=== PATIENT | female | born 1955 | race Hispanic/Latino ===

== ENCOUNTER 2020-03-06 18:45 | Emergency (ER) | payer BC, OTHER ==
[~2020-03-06] VITALS: Ht 152.4 cm; Wt 79.4 kg
[~2020-03-06 18:45] MED LIST: LANTUS100 UNITS/ SC; LEVEMIR100 UNIT/1; LOSARTAN POTASS25 MG; NOVOLOG MI100 UNITS/ SC; PRAVASTATIN SOD10 MG; SINGULAIR10 MG
[2020-03-06 19:18] LABS: BASOPHILS % 0.4 % (0.0-1.0); EOSINOPHILS # (AUTO) 0.5 (0.0-0.4); EOSINOPHILS % 4.9 % (0.0-6.0); HEMATOCRIT 45.5 % (34.2-44.1); HEMOGLOBIN 13.6 g/dL (12.0-16.0); LYMPHOCYTES # (AUTO) 2.3 (1.0-3.2); LYMPHOCYTES % 22.5 % (18.0-39.1); MEAN CORPUSCULAR HEMOGLOBIN 26.5 pg (28-32); MEAN CORPUSCULAR HGB CONC 29.9 g/dL (31-35); MEAN CORPUSCULAR VOLUME 88.5 fL (81-99); MONOCYTES % 9.5 % (4.4-11.3); NEUTROPHILS # (AUTO) 6.3 (2.1-6.9); NEUTROPHILS % 62.4 % (38.7-80.0); PLATELET COUNT 238 x10e3/uL (140-360); RED BLOOD COUNT 5.14 x10e6/uL (3.6-5.1); RED CELL DISTRIBUTION WIDTH 13.8 % (11.7-14.4)
[2020-03-06 19:28] LABS: INR 0.8; PARTIAL THROMBOPLASTIN TIME 32.2 seconds (23.8-35.5); PROTHROMBIN TIME 11.5 seconds (11.9-14.5)
[2020-03-06 19:38] LABS: ALANINE AMINOTRANSFERASE 11 IU/L (0-55); ALBUMIN 3.3 g/dL (3.5-5.0); ALBUMIN/GLOBULIN RATIO 0.8 (0.8-2.0); ALKALINE PHOSPHATASE 123 IU/L (40-150); ANION GAP 15.6 mmol/L (8-16); BLOOD UREA NITROGEN 16 mg/dL (7-26); BUN/CREATININE RATIO 19 (6-25); CALCIUM 9.2 mg/dL (8.4-10.2); CARBON DIOXIDE 33 mmol/L (22-29); CHLORIDE 93 mmol/L (98-107); CREATININE, SERUM 0.83 mg/dL (0.57-1.11); EST GLOMERULAR FILTRATION RATE > 60 ML/MIN (60-); GLUCOSE 375 mg/dL (74-118); POTASSIUM 4.6 mmol/L (3.5-5.1); SODIUM 137 mmol/L (136-145)
[2020-03-06 19:45] LABS: CLARITY,URINE HAZY (CLEAR); COLOR,URINE YELLOW (YELLOW); LEUKOCYTE ESTERASE ,URINE SMALL (NEGATIVE); NITRITE,URINE NEGATIVE (NEGATIVE); PROTEIN,URINE DIPSTICK 1+ (NEGATIVE)
[2020-03-06 19:46] LABS: B-TYPE NATRIURETIC PEPTIDE2 < 10.0 pg/mL (0-100); KETONES,URINE NEGATIVE (NEGATIVE); URINE UROBILINOGEN 0.2 mg/dL (0.2 - 1)
[2020-03-06 19:56] LABS: BACTERIA,URINE FEW /HPF; EPITHELIAL CELLS,URINE FEW /LPF
[2020-03-06 19:57] LABS: WBC,URINE (MAN) 21-50 /HPF (0-5)
[2020-03-06] MEDS ORDERED: CEFTRIAXONE SOD 1 GM/NS 50 ML 50 ML IV ONE ×2 (21:00)
[2020-03-06] MEDS ORDERED: SODIUM CHLORIDE 0.9% 1000ML 1,000 ML IV ONE (21:00)
[2020-03-06] MEDS ORDERED: ALBUTEROL/IPRATROPIUM 3 ML NEB NEB ONE (21:00)
[2020-03-06] MEDS ORDERED: SODIUM CHLORIDE 0.9% 1000ML 1,000 ML ONE (21:00)
[2020-03-06] MEDS ORDERED: IOPAMIDOL 370 MG/ML 200 ML INFUS..BTL INJ ONE (21:05)
[2020-03-06] MEDS ORDERED: SODIUM CHLORIDE 0.9% 50ML 50 ML ONE (21:05)
[2020-03-06] MEDS ORDERED: CEFDINIR300 MG PO (23:30)
== END 2020-03-07 00:29 | disposition home or self-care (01) ==
LOC: ER 18:55
DX: R06.02 Shortness of breath (principal); J44.9 Chronic obstructive pulmonary disease, unspecified; N39.0 Urinary tract infection, site not specified; M54.9 Dorsalgia, unspecified; G89.29 Other chronic pain; E11.65 Type 2 diabetes mellitus with hyperglycemia; I10 Essential (primary) hypertension; G47.30 Sleep apnea, unspecified
CPT/HCPCS: 36415; 71045; 71260; 80053; 81001; 83605; 83880; 85025; 85379; 85610; 85730; 87040; 93005; 99284; J0696; J7030; Q9967; U0002